=== PATIENT | female | born 1995 | race Caucasian/White ===

== ENCOUNTER 2018-11-28 16:26 | Inpatient (IN) | payer MEDICAID ==
[~2018-11-28] VITALS: Ht 165.1 cm; Wt 92.2 kg
[2018-11-29] MEDS ORDERED: OXYTOCIN 30U/ 0.9% NaCL 500ML 500 ML IV PRN (06:15)
[2018-11-29] MEDS ORDERED: D5%-LACTATED RINGERS 1,000 ML IV SCH (06:15)
[2018-11-29] MEDS ORDERED: OXYTOCIN 30U/ 0.9% NaCL 500ML 500 ML IV ONE (06:15)
[2018-11-29] MEDS ORDERED: PREN-3 PO (06:27)
[2018-11-29] MEDS ORDERED: TERBUTALINE 1 MG/ML, 1ML IVPush PRN ×2 (06:30)
[2018-11-29] MEDS ORDERED: ONDANSETRON 2MG/ML, 2ML IVPush PRN ×2 (06:30→10:30)
[2018-11-29] MEDS ORDERED: FENTANYL PF 100 MCG/2ML IVPush PRN (06:30)
[2018-11-29] MEDS ORDERED: CALCIUM CARBONATE 500 MG TAB.CHEW PO PRN ×2 (06:30→12:00)
[2018-11-29] MEDS ORDERED: FENTANYL PF 100 MCG/2ML IV PRN (06:30)
[2018-11-29 06:32] VITALS: BP 137/100
[2018-11-29 06:47] LABS: BASOPHILS # (AUTO) 0.03 x10^3/uL (0-0.1); BASOPHILS % (AUTO) 0 % (0-1); EOSINOPHILS # (AUTO) 0.11 x10^3/uL (0-0.4); EOSINOPHILS % (AUTO) 1 % (1-7); LYMPHOCYTES # (AUTO) 1.84 x10^3/uL (1-3.4); LYMPHOCYTES % (AUTO) 19 % (22-44); MD NO; MEAN CORPUSCULAR HEMOGLOBIN 31.4 pg (27.0-34.8); MEAN CORPUSCULAR HGB CONC 34.7 g/dL (32.4-35.8); MEAN CORPUSCULAR VOLUME 90.4 fL (80-100); MEAN PLATELET VOLUME 11.1 fL (7.4-10.4); MONOCYTES # (AUTO) 0.48 x10^3/uL (0.2-0.8); MONOCYTES % (AUTO) 5 % (2-9); NEUTROPHILS # (AUTO) 7.08 x10^3/uL (1.8-6.8); NEUTROPHILS % (AUTO) 74 % (42-75); PLATELET COUNT 188 x10^3/uL (130-400); RED BLOOD COUNT 4.05 x10^6/uL (3.82-5.3); RED CELL DISTRIBUTION WIDTH 13.5 % (9.6-15.2)
[2018-11-29] MEDS: LACTATED RINGERS 1,000 ML IV SCH ×4 (06:49→20:26)
[2018-11-29] MEDS ORDERED: OXYTOCIN 30U/ 0.9% NaCL 500ML 500 ML ONE ×2 (06:51→13:14)
[2018-11-29] MEDS ORDERED: NEWBORN KIT ONE (06:51)
[2018-11-29 06:52] LABS: MICROSCOPIC INDICATED
[2018-11-29 06:59] LABS: ALBUMIN 2.8 g/dL (3.4-5.0); ANION GAP 10 mmol/L (5-15); CALCIUM 8.6 mg/dL (8.5-10.1); CHLORIDE 110 mmol/L (98-107)
[2018-11-29 07:04] LABS: ALANINE AMINOTRANSFERASE 25 U/L (12-78); ALKALINE PHOSPHATASE 108 U/L (45-117); BILIRUBIN,TOTAL 0.4 mg/dL (0.2-1.0); TOTAL PROTEIN 6.7 g/dL (6.4-8.2)
[2018-11-29 07:14] LABS: BILIRUBIN, DIRECT < 0.1 mg/dL (0.1-0.2)
[2018-11-29] MEDS ORDERED: FENTANYL PF 100 MCG/2ML ONE ×3 (08:04→09:15)
[2018-11-29] MEDS ORDERED: FENTANYL/BUPIV./NS/PF 250 ML EPIDCONT SCH ×2 (08:11→10:14)
[2018-11-29] MEDS ORDERED: BUPIVACAINE 0.25% ONE (09:10)
[2018-11-29] MEDS ORDERED: FENTANYL/BUPIV./NS/PF 250 ML EPIDCONT ONE ×2 (09:10→09:15)
[2018-11-29] MEDS ORDERED: LIDOCAINE/PF 1.5%-EPI 1:200K, 30ML ONE (09:15)
[2018-11-29] MEDS ORDERED: BUMETANIDE 0.25 MG/ML, 10ML ONE (09:15)
[2018-11-29] MEDS ORDERED: MAGNESIUM SULF. PMX 20GM/500ML 500 ML IV ONE ×2 (09:43→20:19)
[2018-11-29] MEDS ORDERED: MAGNESIUM SULFATE PMX 4GM/100M 100 ML ONE (09:43)
[2018-11-29] MEDS ORDERED: MAGNESIUM SULFATE PMX 4GM/100M 100 ML IVPB ONE (10:00)
[2018-11-29] MEDS: MAGNESIUM SULF. PMX 20GM/500ML 500 ML IV SCH ×2 (10:11→20:21)
[2018-11-29] MEDS ORDERED: EPHEDRINE 50 MG/ML, 1ML IVPush PRN (10:30)
[2018-11-29] MEDS ORDERED: LACTATED RINGERS 1,000 ML IVBOLUS PRN (10:30)
[2018-11-29] MEDS: OXYTOCIN 30U/ 0.9% NaCL 500ML 500 ML IV SCH ×11 (11:43→23:11)
[2018-11-29] MEDS ORDERED: ONDANSETRON 2MG/ML, 2ML IV PRN (12:00)
[2018-11-29] MEDS ORDERED: OXYTOCIN 10 UNITS/ML, 1ML IM PRN (12:00)
[2018-11-29] MEDS ORDERED: CARBOPROST TROMETHAMINE 250 MCG/ML, 1ML IM PRN (12:00)
[2018-11-29] MEDS ORDERED: ACETAMINOPHEN 325 MG TABLET PO PRN ×2 (12:00)
[2018-11-29] MEDS ORDERED: OXYcodone/APAP 5/325MG TABLET PO PRN (12:00)
[2018-11-29] MEDS: CEFAZOLIN PMX 1GM/50ML 50 ML IV SCH (16:10)
[2018-11-29] MEDS ORDERED: OXYcodone/APAP 5/325MG TABLET ONE (18:32)
[2018-11-29] MEDS ORDERED: IBUPROFEN 600 MG TABLET ONE (18:32)
[2018-11-29] MEDS: IBUPROFEN 600 MG TABLET PO PRN (18:35)
[2018-11-29] MEDS: OXYcodone/APAP 5/325MG TABLET PO PRN (18:35)
[2018-11-29 19:01] LABS: BASOPHILS # (AUTO) 0.01 x10^3/uL (0-0.1); BASOPHILS % (AUTO) 0 % (0-1); EOSINOPHILS # (AUTO) 0.03 x10^3/uL (0-0.4); EOSINOPHILS % (AUTO) 0 % (1-7); LYMPHOCYTES # (AUTO) 1.43 x10^3/uL (1-3.4); LYMPHOCYTES % (AUTO) 9 % (22-44); MD NO; MEAN CORPUSCULAR HEMOGLOBIN 31.5 pg (27.0-34.8); MEAN CORPUSCULAR HGB CONC 34.5 g/dL (32.4-35.8); MEAN CORPUSCULAR VOLUME 91.3 fL (80-100); MEAN PLATELET VOLUME 10.5 fL (7.4-10.4); MONOCYTES # (AUTO) 0.65 x10^3/uL (0.2-0.8); MONOCYTES % (AUTO) 4 % (2-9); NEUTROPHILS # (AUTO) 13.05 x10^3/uL (1.8-6.8); NEUTROPHILS % (AUTO) 86 % (42-75); PLATELET COUNT 186 x10^3/uL (130-400); RED BLOOD COUNT 3.91 x10^6/uL (3.82-5.3); RED CELL DISTRIBUTION WIDTH 13.7 % (9.6-15.2)
[2018-11-30] MEDS: CEFAZOLIN PMX 1GM/50ML 50 ML IV SCH (00:03)
[2018-11-30] MEDS: OXYTOCIN 30U/ 0.9% NaCL 500ML 500 ML IV SCH ×11 (00:37→17:43)
[2018-11-30] MEDS ORDERED: MAGNESIUM SULF. PMX 20GM/500ML 500 ML IV ONE (05:26)
[2018-11-30] MEDS: MAGNESIUM SULF. PMX 20GM/500ML 500 ML IV SCH (05:29)
[2018-11-30] MEDS ORDERED: PRENATAL VIT/IRON/FA 1 EACH TABLET ONE (08:25)
[2018-11-30] MEDS ORDERED: DOCUSATE 100 MG CAPSULE ONE (08:26)
[2018-11-30] MEDS: PRENATAL VIT/IRON/FA 1 EACH TABLET PO SCH (08:29)
[2018-11-30] MEDS: DOCUSATE 100 MG CAPSULE PO PRN ×2 (08:29→20:42)
[2018-11-30 08:35] VITALS: BP 136/84
[2018-11-30] MEDS ORDERED: IBUPROFEN 600 MG TABLET ONE (08:49)
[2018-11-30] MEDS ORDERED: OXYcodone/APAP 5/325MG TABLET ONE (08:50)
[2018-11-30] MEDS ORDERED: NITROFURANTOIN (MACROBID) 100 MG CAPSULE ONE (08:50)
[2018-11-30] MEDS: IBUPROFEN 600 MG TABLET PO PRN (08:51)
[2018-11-30] MEDS: OXYcodone/APAP 5/325MG TABLET PO PRN (08:51)
[2018-11-30] MEDS: NITROFURANTOIN (MACROBID) 100 MG CAPSULE PO SCH ×2 (08:51→20:41)
[2018-11-30 13:23] VITALS: BP 127/88
[2018-11-30 20:00] VITALS: BP 122/88
[2018-12-01] MEDS: OXYTOCIN 30U/ 0.9% NaCL 500ML 500 ML IV SCH (03:43)
[2018-12-01 08:00] VITALS: BP 137/88
[2018-12-01] MEDS: PRENATAL VIT/IRON/FA 1 EACH TABLET PO SCH (08:15)
[2018-12-01] MEDS: IBUPROFEN 600 MG TABLET PO PRN (08:15)
[2018-12-01] MEDS: NITROFURANTOIN (MACROBID) 100 MG CAPSULE PO SCH (08:16)
[2018-12-01] MEDS ORDERED: IBUP-1222 PO (11:06)
[2018-12-01] MEDS ORDERED: OXYC-302 PO (11:06)
== END 2018-12-01 11:55 | disposition home or self-care (01) | DRG 807 ==
LOC: LDIP 11-29 06:12 → 2NE 11-29 15:30 → 2NW 11-30 13:08
PROVIDERS: ADMIT Obstetrics & Gynecology; ATTEND Obstetrics & Gynecology
PROC: 10E0XZZ Delivery of Products of Conception, External Approach (ICD-10-PCS; principal; 2018-11-29)
PROC: 0KQM0ZZ Repair Perineum Muscle, Open Approach (ICD-10-PCS; 2018-11-29)
PROC: 3E0R3BZ Introduction of Anesthetic Agent into Spinal Canal, Percutaneous Approach (ICD-10-PCS; 2018-11-29)
PROC: 00HU33Z Insertion of Infusion Device into Spinal Canal, Percutaneous Approach (ICD-10-PCS; 2018-11-29)
PROC: 3E033VJ Introduction of Other Hormone into Peripheral Vein, Percutaneous Approach (ICD-10-PCS; 2018-11-29)
DX: O11.4 Pre-existing hypertension with pre-eclampsia, complicating childbirth (principal); Z37.0 Single live birth; O71.4 Obstetric high vaginal laceration alone; Z3A.38 38 weeks gestation of pregnancy
CPT/HCPCS: 36415; 80053; 81001; 82248; 82570; 83735; 84156; 84550; 85025; 86850; 86900; G0378; J0690; J3010; J3490; J2590; J3475; J7120

== ENCOUNTER 2019-01-15 06:38 | Emergency (ER) | payer MEDICAID, OTHER ==
[~2019-01-15] VITALS: Ht 167.6 cm; Wt 84.8 kg
[~2019-01-15 06:38] MED LIST: IBUP-1222 PO; OXYC-302 PO; PREN-3 PO
[2019-01-15 07:14] VITALS: BP 114/68
--- NOTE | 2019-01-15 07:16 | NUR ---
PT SITTING IN BED, NO ACUTE SIGNS OF DISTRESS. PT C/O LEFT EAR PAIN X 3 DAYS.
== END 2019-01-15 08:09 | disposition home or self-care (01) ==
LOC: ED 07:18
DX: H65.02 Acute serous otitis media, left ear (principal); H60.502 Unspecified acute noninfective otitis externa, left ear
CPT/HCPCS: 99283

== ENCOUNTER 2019-09-05 08:47 | Inpatient (IN) | payer MEDICAID ==
[~2019-09-05] VITALS: Ht 165.1 cm; Wt 87.7 kg
[~2019-09-05 08:47] MED LIST changes: +PRENATAL
[2019-09-05] MEDS ORDERED: LACTATED RINGERS 1,000 ML IV SCH ×4 (09:26→09:59)
[2019-09-05] MEDS ORDERED: D5%-LACTATED RINGERS 1,000 ML IV SCH (09:26)
[2019-09-05] MEDS ORDERED: OXYTOCIN 30U/ 0.9% NaCL 500ML 500 ML IV ONE (09:26)
[2019-09-05] MEDS ORDERED: TERBUTALINE 1 MG/ML, 1ML SQ PRN (09:30)
[2019-09-05] MEDS ORDERED: FENTANYL PF 100 MCG/2ML IV PRN (09:30)
[2019-09-05] MEDS ORDERED: ONDANSETRON 2MG/ML, 2ML IVPush PRN (09:30)
[2019-09-05] MEDS ORDERED: CALCIUM CARBONATE 500 MG TAB.CHEW PO PRN (09:30)
[2019-09-05] MEDS ORDERED: FENTANYL PF 100 MCG/2ML IVPush PRN (09:30)
[2019-09-05] MEDS ORDERED: TERBUTALINE 1 MG/ML, 1ML IVPush PRN (09:30)
[2019-09-05] MEDS ORDERED: LIDOCAINE 1%, 20ML ONE (09:53)
[2019-09-05] MEDS ORDERED: OXYTOCIN 30U/ 0.9% NaCL 500ML 500 ML ONE ×2 (09:54→14:01)
[2019-09-05] MEDS ORDERED: MISOPROSTOL 200 MCG TABLET ONE (09:54)
[2019-09-05] MEDS ORDERED: FENTANYL PF 100 MCG/2ML ONE (09:54)
[2019-09-05] MEDS ORDERED: FENTANYL/BUPIV./NS/PF 250 ML EPIDCONT SCH ×3 (09:56→09:59)
[2019-09-05] MEDS ORDERED: LACTATED RINGERS 1,000 ML IVBOLUS PRN ×3 (10:00)
[2019-09-05] MEDS ORDERED: NALOXONE 0.4 MG/ML, 1ML IVPush PRN ×3 (10:00)
[2019-09-05] MEDS ORDERED: EPHEDRINE 50 MG/ML, 1ML IVPush PRN ×3 (10:00)
[2019-09-05 10:06] LABS: BASOPHILS # (AUTO) 0.08 x10^3/uL (0-0.1); BASOPHILS % (AUTO) 1 % (0-1); EOSINOPHILS # (AUTO) 0.07 x10^3/uL (0-0.4); EOSINOPHILS % (AUTO) 1 % (1-7); LYMPHOCYTES # (AUTO) 1.63 x10^3/uL (1-3.4); LYMPHOCYTES % (AUTO) 13 % (22-44); MD NO; MEAN CORPUSCULAR HEMOGLOBIN 30.5 pg (27.0-34.8); MEAN CORPUSCULAR HGB CONC 33.3 g/dL (32.4-35.8); MEAN CORPUSCULAR VOLUME 91.7 fL (80-100); MEAN PLATELET VOLUME 10.6 fL (7.4-10.4); MONOCYTES # (AUTO) 0.44 x10^3/uL (0.2-0.8); MONOCYTES % (AUTO) 4 % (2-9); NEUTROPHILS # (AUTO) 10.41 x10^3/uL (1.8-6.8); NEUTROPHILS % (AUTO) 82 % (42-75); PLATELET COUNT 162 x10^3/uL (130-400); RED BLOOD COUNT 4.03 x10^6/uL (3.82-5.3); RED CELL DISTRIBUTION WIDTH 12.9 % (9.6-15.2)
[2019-09-05] MEDS ORDERED: FENTANYL/BUPIV./NS/PF 250 ML EPIDCONT ONE ×2 (10:24→10:40)
[2019-09-05] MEDS ORDERED: BUPIVACAINE 0.25% ONE (10:40)
[2019-09-05 11:33] VITALS: BP 119/68
[2019-09-05] MEDS ORDERED: OXYTOCIN 30U/ 0.9% NaCL 500ML 500 ML IV SCH (15:51)
[2019-09-05] MEDS ORDERED: MISOPROSTOL 200 MCG TABLET PR PRN (16:00)
[2019-09-05] MEDS ORDERED: SIMETHICONE 80 MG CHEW TAB PO PRN (16:00)
[2019-09-05] MEDS ORDERED: DOCUSATE 100 MG CAPSULE PO PRN (16:00)
[2019-09-05] MEDS ORDERED: OXYcodone/APAP 5/325MG TABLET PO PRN ×2 (16:00)
[2019-09-05] MEDS ORDERED: ONDANSETRON 2MG/ML, 2ML IV PRN (16:00)
[2019-09-05] MEDS ORDERED: IBUPROFEN 600 MG TABLET PO PRN (16:00)
[2019-09-05] MEDS ORDERED: OXYC-302 PO (19:11)
[2019-09-05] MEDS ORDERED: IBUP-1223 PO (19:12)
[2019-09-05 19:34] VITALS: BP 114/75
[2019-09-06] MEDS ORDERED: PRENATAL VIT/IRON/FA 1 EACH TABLET PO SCH (09:00)
== END 2019-09-05 20:01 | disposition home or self-care (01) | DRG 805 ==
LOC: LDOP 08:47 → LDIP 09:46 → 2NW 15:36
PROVIDERS: ADMIT Obstetrics & Gynecology; ATTEND Obstetrics & Gynecology
PROC: 10E0XZZ Delivery of Products of Conception, External Approach (ICD-10-PCS; principal; 2019-09-05)
PROC: 3E0R3BZ Introduction of Anesthetic Agent into Spinal Canal, Percutaneous Approach (ICD-10-PCS; 2019-09-05)
PROC: 00HU33Z Insertion of Infusion Device into Spinal Canal, Percutaneous Approach (ICD-10-PCS; 2019-09-05)
DX: O40.3XX0 Polyhydramnios, third trimester, not applicable or unspecified (principal); O60.14X0 Preterm labor third trimester with preterm delivery third trimester, not applicable or unspecified; Z37.0 Single live birth; Z3A.33 33 weeks gestation of pregnancy
CPT/HCPCS: 36415; 85025; 86592; 86850; 86900; 88307; G0378; J3010; J3490; J7120

== ENCOUNTER 2019-09-06 20:47 | Emergency (ER) | payer MEDICAID ==
[~2019-09-06] VITALS: Ht 165.1 cm; Wt 85.7 kg
[~2019-09-06 20:47] MED LIST changes: +IBUP-1223 PO
[2019-09-06 20:50] VITALS: BP 128/81
[2019-09-06 21:12] LABS: BASOPHILS % (AUTO) 0 % (0-1); EOSINOPHILS # (AUTO) 0.09 x10^3/uL (0-0.4); EOSINOPHILS % (AUTO) 1 % (1-7); LYMPHOCYTES # (AUTO) 1.78 x10^3/uL (1-3.4); LYMPHOCYTES % (AUTO) 14 % (22-44); MD NO; MEAN CORPUSCULAR HEMOGLOBIN 30.7 pg (27.0-34.8); MEAN CORPUSCULAR HGB CONC 33.6 g/dL (32.4-35.8); MEAN CORPUSCULAR VOLUME 91.5 fL (80-100); MEAN PLATELET VOLUME 9.7 fL (7.4-10.4); MONOCYTES # (AUTO) 0.44 x10^3/uL (0.2-0.8); MONOCYTES % (AUTO) 3 % (2-9); NEUTROPHILS # (AUTO) 10.54 x10^3/uL (1.8-6.8); NEUTROPHILS % (AUTO) 82 % (42-75); PLATELET COUNT 218 x10^3/uL (130-400); RED BLOOD COUNT 3.53 x10^6/uL (3.82-5.3); RED CELL DISTRIBUTION WIDTH 13.6 % (9.6-15.2)
[2019-09-06 21:22] LABS: ALANINE AMINOTRANSFERASE 20 U/L (12-78); ALBUMIN 2.6 g/dL (3.4-5.0); ANION GAP 5 mmol/L (5-15); CALCIUM 8.5 mg/dL (8.5-10.1); CHLORIDE 108 mmol/L (98-107); CREATININE 0.66 mg/dL (0.55-1.02)
[2019-09-06 21:24] LABS: ALKALINE PHOSPHATASE 82 U/L (45-117); BILIRUBIN,TOTAL 0.2 mg/dL (0.2-1.0); TOTAL PROTEIN 6.7 g/dL (6.4-8.2)
--- NOTE | 2019-09-07 01:31 | NUR ---
TASK RN: DC EDUCATION PROVIDED, PT DEMONSTRATES UNDERSTANDING. PT AMBULATED STEADILY TO DC WITH RN
== END 2019-09-07 01:33 | disposition home or self-care (01) ==
LOC: ED 09-07 01:25
DX: O72.1 Other immediate postpartum hemorrhage (principal); Z3A.33 33 weeks gestation of pregnancy
CPT/HCPCS: 36415; 76856; 80053; 85025; 99284